=== PATIENT | female | born 1950 | race Caucasian/White ===

== ENCOUNTER 2020-09-26 14:47 | Outpatient (REF) | payer OTHER, SELFPAY | END 2020-09-26 14:48 | disposition home or self-care (01) | LOC: HO.MANLDS 14:47 | PROVIDERS: PCP Internal Medicine; Visit Provider Internal Medicine | DX: R19.5 Other fecal abnormalities (principal) | CPT/HCPCS: 36415; 87177; 87209 ==

== ENCOUNTER 2021-06-15 11:49 | Outpatient (REF) | payer OTHER, SELFPAY ==
[2021-06-15 12:54] LABS: Appearance Urine HAZY; Color Urine YELLOW; Glucose Urine UA NEG (NEG); Leukocyte Esterase Urine 1+ (NEG); Nitrite Urine NEG (NEG); Specific Gravity - Urine 1.015 (1.005-1.025); UACC Culture Trigger YES; Urine Blood 3+ (NEG); Urine Ketones NEG (NEG); Urine Protein NEG (NEG-TRACE)
[2021-06-15 13:03] LABS: Squamous Epithelial Cell Urine 1+ /LPF
[2021-06-15 13:04] LABS: Amorphous Sediment Urine 1+ /LPF; Mucus Urine 1+ /LPF
== END 2021-06-15 11:50 | disposition home or self-care (01) ==
LOC: HO.MANLDS 11:49
PROVIDERS: PCP Internal Medicine; Visit Provider Internal Medicine
DX: R35.0 Frequency of micturition (principal)
CPT/HCPCS: 81001; 87086

== ENCOUNTER 2024-06-08 11:23 | Outpatient (REF) | payer OTHER, SELFPAY ==
[2024-06-08 13:48] LABS: Appearance Urine Cloudy; Color Urine Yellow; Glucose Urine UA Negative (Negative); Leukocyte Esterase Urine Moderate (2+) (Negative); Nitrite Urine Negative (Negative); Specific Gravity - Urine 1.015 (1.005-1.025); UMIC TRIGGER UACC YES; Urine Blood Large (3+) (Negative); Urine Ketones Trace mg/dL (Negative); Urine Protein Negative (Neg-Trace)
[2024-06-08 14:03] LABS: Bacteria Urine None Seen (None Seen); Hyaline Casts Urine 0-2 /LPF (0-2); UACC Culture Trigger YES; WBC Urine 0-5 /HPF (0-5)
== END 2024-06-08 11:24 | disposition home or self-care (01) ==
LOC: HO.MANLDS 11:23
PROVIDERS: Visit Provider Internal Medicine
DX: I10 Essential (primary) hypertension (principal); E03.8 Other specified hypothyroidism; N39.0 Urinary tract infection, site not specified
CPT/HCPCS: 81001; 87086

== ENCOUNTER 2025-02-25 10:26 | Outpatient (REF) | payer OTHER, SELFPAY ==
[2025-02-25 14:08] LABS: MANUAL DIFF FLAG NO
[2025-02-25 14:26] LABS: Hematocrit 39.4 % (37.0-47.0); Hemoglobin 12.6 g/dl (12.0-16.0); Imm Gran Abs Auto 0.02 X10*3/uL (0.00-0.03); Imm Gran Pct Auto 0.3 % (0.0-0.4); Lymphocytes Absolute Auto 0.9 X10*3/uL (1.2-4.9); Mean Corpuscular HGB Conc 32.0 g/dl (31.0-35.0); Mean Corpuscular Hemoglobin 27.9 pg (27.0-33.0); Mean Corpuscular Volume 87.4 fL (80.0-98.0); NRBC Abs Auto 0.000 X10*3/uL (0.0-0.012); NRBC Pct Auto 0.0 /100WBC (0.0-0.2); Platelet Count 258 X10*3/uL (160-400); Red Blood Count 4.51 X10*6/uL (4.20-5.50); Reticulocytes Absolute 0.045 X10*6/uL (0.026-0.095); White Blood Count 6.4 X10*3/uL (4.8-10.8)
[2025-02-25 14:38] LABS: Alanine Aminotransferase 18 U/L (0-31); Albumin Level 4.6 g/dL (3.5-5.0); Alkaline Phosphatase 78 U/L (39-117); Anion Gap 10 (12-20); Aspartate Amino Transferase 21 U/L (5-31); Blood Urea Nitrogen 13 mg/dL (9-16); Calcium 9.6 mg/dL (8.4-10.2); Carbon Dioxide 28 mmol/L (22-29); Chloride 99 mmol/L (96-108); Estimated Glomerular Filt Rate > 60; Iron 79 mcg/dL (30-160); Percent Iron Saturation 26 % (15-50); Potassium 4.4 mmol/L (3.3-5.1); Sodium 133 mmol/L (135-145); Total Iron Binding Capacity 304 mcg/dL (228-428); Total Protein 7.2 g/dL (6.5-8.0); Unsaturated Iron Binding 225 ug/dL
[2025-02-25 15:00] LABS: Ferritin 120 ng/mL (10-250)
[2025-02-25 15:19] LABS: Folate 10.7 ng/mL (> or = 4.0); Vitamin B12 1204 pg/mL (200-900)
== END 2025-02-25 10:27 | disposition home or self-care (01) ==
LOC: HO.MANLDS 10:26
PROVIDERS: Visit Provider Internal Medicine
DX: R63.4 Abnormal weight loss (principal); Z13.0 Encounter for screening for diseases of the blood and blood-forming organs and certain disorders involving the immune mechanism
CPT/HCPCS: 36415; 80053; 82607; 82728; 82746; 83540; 85025; 85045